=== PATIENT | female | born 1940 | race Caucasian/White ===

== ENCOUNTER 2017-10-19 06:31 | Inpatient (IN) | payer MEDICARE, OTHER ==
[~2017-10-19] VITALS: Ht 170.2 cm; Wt 75.0 kg
[2017-10-19] MEDS ORDERED: normal saline 1000ML IV soln IVB ONE (06:45)
[2017-10-19 07:12] LABS: BASOPHILS # (AUTO) 0.1 X10'3 (0-0.2); BASOPHILS % (AUTO) 0.4 % (0-1); EOSINOPHILS # (AUTO) 0.2 X10'3 (0-0.9); EOSINOPHILS % (AUTO) 1.6 % (0-6); HEMATOCRIT 28.9 % (35.0-45.0); HEMOGLOBIN 9.8 g/dl (12.0-16.0); LYMPHOCYTES # (AUTO) 1.5 X10'3 (1.1-4.8); LYMPHOCYTES % (AUTO) 9.8 % (21-51); MEAN CORPUSCULAR HEMOGLOBIN 29.9 PG (27.0-31.0); MEAN PLATELET VOLUME 8.9 FL (7.4-10.4); MONOCYTES # (AUTO) 0.2 X10'3 (0-0.9); MONOCYTES % (AUTO) 1.6 % (2-12); NEUTROPHILS # (AUTO) 13.5 X10'3 (1.8-7.7); NEUTROPHILS % (AUTO) 86.6 % (42-75); PLATELET COUNT 328 X10'3 (140-440); RED BLOOD COUNT 3.29 X10'6 (4.20-5.60); RED CELL DISTRIBUTION WIDTH 13.3 % (11.5-14.5); WHITE BLOOD COUNT 15.6 X10'3 (4.5-11.0)
[2017-10-19 07:37] LABS: ALANINE AMINOTRANSFERASE 23 U/L (12-78); ALBUMIN 3.3 G/DL (3.4-5.0); ALKALINE PHOSPHATASE 43 IU/L (46-116); ANION GAP 11 (8-16); ASPARTATE AMINO TRANSFERASE 13 U/L (10-37); BILIRUBIN,TOTAL 0.3 MG/DL (0.1-1.0); BLOOD UREA NITROGEN 46 MG/DL (7-18); BUN/CREATININE RATIO 79.3 (6.6-38.0); CHLORIDE 106 MMOL/L (99-107); CREATININE 0.58 MG/DL (0.40-0.90); GLUCOSE 107 MG/DL (70-104); MAGNESIUM 1.8 MG/DL (1.5-2.4); POTASSIUM 4.1 MMOL/L (3.5-5.1); SODIUM 143 MMOL/L (135-145); TOTAL PROTEIN 6.6 G/DL (6.4-8.2); eGFR > 90 ML/MIN
[2017-10-19] MEDS ORDERED: mag hydrox/Alum hydrox/simeth 30ml oral suspension PO PRN (08:40)
[2017-10-19] MEDS ORDERED: acetaminophen 325mg tablet PO PRN ×2 (08:40)
[2017-10-19] MEDS ORDERED: HYDROcodone/acetaminophen 5mg/325mg tablet PO PRN (08:40)
[2017-10-19] MEDS ORDERED: magnesium hydroxide 30ml (MOM) UD suspension PO PRN (08:40)
[2017-10-19] MEDS ORDERED: ondansetron/PF 4mg/2ml inj IV PRN (08:40)
[2017-10-19] MEDS ORDERED: PSEU30TA PO (09:28)
[2017-10-19] MEDS ORDERED: OSC500T PO (09:28)
[2017-10-19] MEDS ORDERED: BACL10TA PO (09:28)
[2017-10-19] MEDS ORDERED: OM-31CAP2 PO (09:28)
[2017-10-19] MEDS ORDERED: TRAM50TA2 PO (09:28)
[2017-10-19] MEDS ORDERED: FIBER PO (09:28)
[2017-10-19] MEDS ORDERED: VITA-268 PO (09:28)
[2017-10-19] MEDS ORDERED: MULT-933 PO (09:28)
[2017-10-19] MEDS ORDERED: MECL12.584 PO (09:28)
[2017-10-19] MEDS ORDERED: [UNRECOGNIZED DRUG - REMARK] (09:28)
[2017-10-19] MEDS ORDERED: ESTR-4 PO (09:28)
[2017-10-19] MEDS ORDERED: TRIA1TAB5 PO (09:28)
[2017-10-19] MEDS ORDERED: LANS30CA56 PO (09:28)
[2017-10-19] MEDS ORDERED: CELE-193 PO (09:28)
[2017-10-19] MEDS ORDERED: HYDR-565 PO (09:28)
[2017-10-19] MEDS ORDERED: SIMV80TA2 PO (09:28)
[2017-10-19] MEDS ORDERED: ASPI-130 PO (09:28)
[2017-10-19] MEDS ORDERED: LOSA50TA3 PO (09:28)
[2017-10-19] MEDS: normal saline 1000ml 1,000 ML IV SCH ×2 (09:30→22:42)
[2017-10-19 10:33] LABS: CLARITY,URINE CLEAR (Clear); COLOR,URINE YELLOW (Yellow); GLUCOSE, URINE NEGATIVE (Neg); KETONES,URINE 15 mg/dl (Neg); LEUKOCYTE ESTERASE ,URINE NEGATIVE (Neg); NITRITES, URINE NEGATIVE (Neg); OCCULT BLOOD,URINE NEGATIVE (Neg); PH,URINE 5.5 (4.8-8.0); PROTEIN,URINE NEGATIVE (Neg); UROBILINOGEN,URINE 0.2 E.U/dL (0.2-1.0)
[2017-10-19 10:38] LABS: UA COLLECTION TYPE CLN CATCH MIDSTREAM
[2017-10-19] MEDS: HYDROcodone/acetaminophen 10/325mg tab PO PRN ×2 (11:07→22:41)
[2017-10-19 19:10] VITALS: BP 129/59
[2017-10-19] MEDS ORDERED: temazepam 15mg capsule PO PRN (21:00)
[2017-10-19 22:00] VITALS: BP 149/41
[2017-10-19 22:46] LABS: HEMOGLOBIN 7.4 g/dl (12.0-16.0); MEAN CORPUSCULAR HGB CONC 34.3 % (33.0-36.5); MEAN CORPUSCULAR VOLUME 87.4 FL (78-98); MEAN PLATELET VOLUME 9.1 FL (7.4-10.4); PLATELET COUNT 272 X10'3 (140-440); RED BLOOD COUNT 2.45 X10'6 (4.20-5.60); RED CELL DISTRIBUTION WIDTH 13.7 % (11.5-14.5); WHITE BLOOD COUNT 9.7 X10'3 (4.5-11.0)
[2017-10-19 22:52] LABS: HEMATOCRIT 21.5 % (35.0-45.0)
[2017-10-19 23:24] LABS: OCCULT BLOOD STOOL POSITIVE (Neg)
[2017-10-20] VITALS (26 sets, daily range): BP systolic 124–159; BP diastolic 44–87
[2017-10-20] MEDS: HYDROcodone/acetaminophen 10/325mg tab PO PRN ×5 (03:04→23:27)
[2017-10-20] MEDS: normal saline 1000ml 1,000 ML IV SCH ×2 (06:00→14:52)
[2017-10-20 08:59] LABS: BASOPHILS % (AUTO) 0.2 % (0-1); EOSINOPHILS # (AUTO) 0.2 X10'3 (0-0.9); EOSINOPHILS % (AUTO) 1.7 % (0-6); HEMATOCRIT 28.2 % (35.0-45.0); HEMOGLOBIN 9.6 g/dl (12.0-16.0); LYMPHOCYTES # (AUTO) 2.4 X10'3 (1.1-4.8); LYMPHOCYTES % (AUTO) 24.5 % (21-51); MEAN CORPUSCULAR HEMOGLOBIN 30.9 PG (27.0-31.0); MEAN CORPUSCULAR VOLUME 90.9 FL (78-98); MEAN PLATELET VOLUME 9.2 FL (7.4-10.4); MONOCYTES # (AUTO) 0.4 X10'3 (0-0.9); MONOCYTES % (AUTO) 4.3 % (2-12); NEUTROPHILS # (AUTO) 6.9 X10'3 (1.8-7.7); NEUTROPHILS % (AUTO) 69.3 % (42-75); PLATELET COUNT 208 X10'3 (140-440); RED CELL DISTRIBUTION WIDTH 13.3 % (11.5-14.5); WHITE BLOOD COUNT 9.9 X10'3 (4.5-11.0)
[2017-10-20 09:21] LABS: ANION GAP 10 (8-16); BLOOD UREA NITROGEN 28 MG/DL (7-18); BUN/CREATININE RATIO 63.6 (6.6-38.0); CALCIUM 8.3 MG/DL (8.5-10.1); CHLORIDE 113 MMOL/L (99-107); CHOL/HDL RATIO 2.6 (0.00-4.99); CHOLESTEROL 133 MG/DL (0-200); CREATININE 0.44 MG/DL (0.40-0.90); GLUCOSE 104 MG/DL (70-104); HDL CHOLESTEROL 51 MG/DL (35-60); LDL CHOLESTEROL 44 MG/DL (50-100); POTASSIUM 3.4 MMOL/L (3.5-5.1); SODIUM 146 MMOL/L (135-145); TOTAL CARBON DIOXIDE 23.3 MMOL/L (24-32); TRIGLYCERIDES 248 MG/DL (20-135); eGFR > 90 ML/MIN
[2017-10-20] MEDS: pantoprazole 40MG/NS 100ML BAG 100 ML IV SCH ×4 (10:53→19:32)
[2017-10-20] MEDS ORDERED: MIDAZolam 5mg/ml 2ml vial ONE (12:18)
[2017-10-20] MEDS ORDERED: fentaNYL/PF 50MCG/1 ML 2ML syringe ONE (12:18)
[2017-10-20] MEDS ORDERED: LIDOcaine Viscous 15ml cup ONE (12:18)
[2017-10-20] MEDS ORDERED: normal saline 1000ml 1,000 ML IV SCH (13:26)
[2017-10-20] MEDS ORDERED: MIDAZolam 5mg/ml 2ml vial IV PRN (13:30)
[2017-10-20] MEDS ORDERED: LIDOcaine Viscous 15ml cup PO ONE (13:30)
[2017-10-20] MEDS ORDERED: fentaNYL/PF 50MCG/1 ML 2ML syringe IV PRN (13:30)
[2017-10-20] MEDS ORDERED: simethicone 40mg/0.6ml oral drops 30ml MC ONE (13:30)
[2017-10-20] MEDS ORDERED: potassium Cl 40MEQ/NS 500ml 500 ML IV PRN ×2 (15:10)
[2017-10-20] MEDS ORDERED: potassium Cl 20 mEq SR tablet PO PRN (15:10)
[2017-10-20] MEDS ORDERED: magnesium 2GM in 50ml NS 50 ML IV PRN (15:10)
[2017-10-20] MEDS ORDERED: magnesium Cl slow-release 64mg tablet PO PRN (15:10)
[2017-10-20] MEDS ORDERED: magnesium 4gm in 100ml NS 100 ML IV PRN (15:10)
[2017-10-21] MEDS: pantoprazole 40MG/NS 100ML BAG 100 ML IV SCH ×5 (01:01→19:58)
[2017-10-21] MEDS: normal saline 1000ml 1,000 ML IV SCH ×3 (01:02→19:58)
[2017-10-21 02:00] VITALS: BP 142/55
[2017-10-21 04:26] LABS: BASOPHILS % (AUTO) 0.1 % (0-1); EOSINOPHILS # (AUTO) 0.3 X10'3 (0-0.9); EOSINOPHILS % (AUTO) 3.3 % (0-6); HEMATOCRIT 24.6 % (35.0-45.0); HEMOGLOBIN 8.5 g/dl (12.0-16.0); LYMPHOCYTES # (AUTO) 4.6 X10'3 (1.1-4.8); LYMPHOCYTES % (AUTO) 43.7 % (21-51); MEAN CORPUSCULAR HGB CONC 34.5 % (33.0-36.5); MEAN CORPUSCULAR VOLUME 89.8 FL (78-98); MEAN PLATELET VOLUME 8.6 FL (7.4-10.4); MONOCYTES # (AUTO) 0.6 X10'3 (0-0.9); MONOCYTES % (AUTO) 5.4 % (2-12); NEUTROPHILS % (AUTO) 47.5 % (42-75); PLATELET COUNT 221 X10'3 (140-440); RED BLOOD COUNT 2.74 X10'6 (4.20-5.60); RED CELL DISTRIBUTION WIDTH 13.8 % (11.5-14.5); WHITE BLOOD COUNT 10.5 X10'3 (4.5-11.0)
[2017-10-21 04:27] LABS: ALBUMIN 2.8 G/DL (3.4-5.0); ANION GAP 8 (8-16); BLOOD UREA NITROGEN 12 MG/DL (7-18); CHLORIDE 111 MMOL/L (99-107); CREATININE 0.48 MG/DL (0.40-0.90); GLUCOSE 90 MG/DL (70-104); MAGNESIUM 1.9 MG/DL (1.5-2.4); POTASSIUM 3.4 MMOL/L (3.5-5.1); SODIUM 145 MMOL/L (135-145); TOTAL CARBON DIOXIDE 26.5 MMOL/L (24-32); eGFR > 90 ML/MIN
[2017-10-21] MEDS: potassium Cl 20 mEq SR tablet PO PRN ×3 (04:39→13:05)
[2017-10-21] MEDS: HYDROcodone/acetaminophen 10/325mg tab PO PRN ×3 (04:41→15:34)
[2017-10-21 06:00] VITALS: BP 145/45
[2017-10-21 11:00] VITALS: BP 145/58
[2017-10-21] MEDS ORDERED: pseudoephedrine 30mg tablet PO PRN (11:15)
[2017-10-21] MEDS ORDERED: meclizine 12.5mg tablet PO PRN (11:15)
[2017-10-21] MEDS: losartan 50mg tablet PO SCH (12:56)
[2017-10-21] MEDS: baclofen 10mg tablet PO SCH ×2 (12:57→19:58)
[2017-10-21] MEDS: calcium carbonate 500mg tablet PO SCH (12:57)
[2017-10-21] MEDS ORDERED: HYDROcodone/acetaminophen 10/325mg tab PO SCH (13:00)
[2017-10-21 15:00] VITALS: BP 149/33
[2017-10-21 18:00] VITALS: BP 149/50
[2017-10-21] MEDS ORDERED: FLAX PO SCH (20:00)
[2017-10-21] MEDS ORDERED: FISH OIL PO SCH (20:00)
[2017-10-21] MEDS ORDERED: DHA PO SCH (20:00)
[2017-10-21] MEDS ORDERED: pantoprazole 40mg Tablet.DR PO SCH (20:00)
[2017-10-21] MEDS: atorvastatin 20mg tablet PO SCH (20:00)
[2017-10-21] MEDS ORDERED: EPA PO SCH (20:00)
[2017-10-21] MEDS ORDERED: [UNRECOGNIZED DRUG - OTHER] PO SCH (20:00)
[2017-10-21 22:00] VITALS: BP 138/80
[2017-10-22] VITALS (7 sets, daily range): BP systolic 108–162; BP diastolic 43–58
[2017-10-22] MEDS: HYDROcodone/acetaminophen 10/325mg tab PO PRN ×4 (00:21→14:26)
[2017-10-22] MEDS: pantoprazole 40MG/NS 100ML BAG 100 ML IV SCH (01:00)
[2017-10-22 05:41] LABS: BASOPHILS % (AUTO) 0.5 % (0-1); EOSINOPHILS # (AUTO) 0.3 X10'3 (0-0.9); EOSINOPHILS % (AUTO) 4.2 % (0-6); HEMOGLOBIN 7.3 g/dl (12.0-16.0); LYMPHOCYTES # (AUTO) 2.2 X10'3 (1.1-4.8); LYMPHOCYTES % (AUTO) 36.7 % (21-51); MEAN CORPUSCULAR HEMOGLOBIN 30.8 PG (27.0-31.0); MEAN CORPUSCULAR HGB CONC 34.3 % (33.0-36.5); MEAN CORPUSCULAR VOLUME 89.8 FL (78-98); MEAN PLATELET VOLUME 8.7 FL (7.4-10.4); MONOCYTES # (AUTO) 0.4 X10'3 (0-0.9); MONOCYTES % (AUTO) 6.2 % (2-12); NEUTROPHILS # (AUTO) 3.1 X10'3 (1.8-7.7); NEUTROPHILS % (AUTO) 52.4 % (42-75); PLATELET COUNT 210 X10'3 (140-440); RED BLOOD COUNT 2.39 X10'6 (4.20-5.60); RED CELL DISTRIBUTION WIDTH 14.3 % (11.5-14.5); WHITE BLOOD COUNT 5.9 X10'3 (4.5-11.0)
[2017-10-22 05:58] LABS: ALBUMIN 2.6 G/DL (3.4-5.0); ANION GAP 9 (8-16); BLOOD UREA NITROGEN 11 MG/DL (7-18); CALCIUM 8.4 MG/DL (8.5-10.1); CHLORIDE 113 MMOL/L (99-107); GLUCOSE 105 MG/DL (70-104); MAGNESIUM 1.8 MG/DL (1.5-2.4); POTASSIUM 3.5 MMOL/L (3.5-5.1); SODIUM 147 MMOL/L (135-145); TOTAL CARBON DIOXIDE 25.2 MMOL/L (24-32); eGFR > 90 ML/MIN
[2017-10-22 06:22] LABS: HEMATOCRIT 21.4 % (35.0-45.0)
[2017-10-22] MEDS ORDERED: triamterene/HCTZ 37.5/25mg tablet PO SCH (08:00)
[2017-10-22 08:20] LABS: ALANINE AMINOTRANSFERASE 32 U/L (12-78); ALKALINE PHOSPHATASE 35 IU/L (46-116); ASPARTATE AMINO TRANSFERASE 26 U/L (10-37); BILIRUBIN,DIRECT 0.1 MG/DL (0-0.3); BILIRUBIN,TOTAL 0.3 MG/DL (0.1-1.0); TOTAL PROTEIN 5.3 G/DL (6.4-8.2)
[2017-10-22] MEDS: pantoprazole 40 MG vial IV SCH (08:35)
[2017-10-22] MEDS: vitamin B comp w/Vit. C tab 1 TAB TABLET PO SCH (08:35)
[2017-10-22] MEDS: multivitamins, therapeutics tablet PO SCH (08:35)
[2017-10-22] MEDS: losartan 50mg tablet PO SCH (08:35)
[2017-10-22] MEDS: calcium carbonate 500mg tablet PO SCH (08:36)
[2017-10-22 09:25] LABS: BASOPHILS % (AUTO) 0.4 % (0-1); EOSINOPHILS # (AUTO) 0.2 X10'3 (0-0.9); EOSINOPHILS % (AUTO) 3.2 % (0-6); HEMATOCRIT 24.4 % (35.0-45.0); HEMOGLOBIN 8.3 g/dl (12.0-16.0); LYMPHOCYTES # (AUTO) 2.4 X10'3 (1.1-4.8); LYMPHOCYTES % (AUTO) 36.9 % (21-51); MEAN CORPUSCULAR HEMOGLOBIN 31.1 PG (27.0-31.0); MEAN CORPUSCULAR HGB CONC 34.1 % (33.0-36.5); MEAN PLATELET VOLUME 9.5 FL (7.4-10.4); MONOCYTES # (AUTO) 0.4 X10'3 (0-0.9); MONOCYTES % (AUTO) 6.6 % (2-12); NEUTROPHILS # (AUTO) 3.5 X10'3 (1.8-7.7); NEUTROPHILS % (AUTO) 52.9 % (42-75); PLATELET COUNT 233 X10'3 (140-440); RED BLOOD COUNT 2.69 X10'6 (4.20-5.60); RED CELL DISTRIBUTION WIDTH 13.9 % (11.5-14.5); WHITE BLOOD COUNT 6.6 X10'3 (4.5-11.0)
[2017-10-22] MEDS: atorvastatin 20mg tablet PO SCH (20:30)
[2017-10-23] MEDS: HYDROcodone/acetaminophen 10/325mg tab PO PRN ×5 (00:07→19:09)
[2017-10-23 03:00] VITALS: BP 128/55
[2017-10-23 05:22] LABS: BASOPHILS # (AUTO) 0.1 X10'3 (0-0.2); BASOPHILS % (AUTO) 0.7 % (0-1); EOSINOPHILS # (AUTO) 0.3 X10'3 (0-0.9); EOSINOPHILS % (AUTO) 2.4 % (0-6); HEMATOCRIT 26.1 % (35.0-45.0); HEMOGLOBIN 8.8 g/dl (12.0-16.0); LYMPHOCYTES # (AUTO) 4.1 X10'3 (1.1-4.8); LYMPHOCYTES % (AUTO) 38.6 % (21-51); MEAN CORPUSCULAR HEMOGLOBIN 30.6 PG (27.0-31.0); MEAN CORPUSCULAR HGB CONC 33.8 % (33.0-36.5); MEAN CORPUSCULAR VOLUME 90.6 FL (78-98); MEAN PLATELET VOLUME 9.7 FL (7.4-10.4); MONOCYTES # (AUTO) 0.6 X10'3 (0-0.9); MONOCYTES % (AUTO) 5.4 % (2-12); NEUTROPHILS # (AUTO) 5.7 X10'3 (1.8-7.7); NEUTROPHILS % (AUTO) 52.9 % (42-75); PLATELET COUNT 283 X10'3 (140-440); RED BLOOD COUNT 2.88 X10'6 (4.20-5.60); RED CELL DISTRIBUTION WIDTH 13.9 % (11.5-14.5); WHITE BLOOD COUNT 10.7 X10'3 (4.5-11.0)
[2017-10-23 05:55] LABS: ALBUMIN 3.1 G/DL (3.4-5.0); ANION GAP 11 (8-16); BLOOD UREA NITROGEN 16 MG/DL (7-18); BUN/CREATININE RATIO 29.6 (6.6-38.0); CALCIUM 9.1 MG/DL (8.5-10.1); CHLORIDE 109 MMOL/L (99-107); CREATININE 0.54 MG/DL (0.40-0.90); GLUCOSE 94 MG/DL (70-104); MAGNESIUM 1.9 MG/DL (1.5-2.4); POTASSIUM 3.4 MMOL/L (3.5-5.1); SODIUM 147 MMOL/L (135-145); TOTAL CARBON DIOXIDE 27.4 MMOL/L (24-32); eGFR > 90 ML/MIN
[2017-10-23 06:00] VITALS: BP 146/39
[2017-10-23] MEDS: pantoprazole 40 MG vial IV SCH (07:49)
[2017-10-23] MEDS: vitamin B comp w/Vit. C tab 1 TAB TABLET PO SCH (07:50)
[2017-10-23] MEDS: calcium carbonate 500mg tablet PO SCH (07:50)
[2017-10-23] MEDS: multivitamins, therapeutics tablet PO SCH (07:50)
[2017-10-23] MEDS: losartan 50mg tablet PO SCH (07:50)
[2017-10-23 08:00] VITALS: BP_SYST 114; BP_SYST 121; BP_SYST 133; BP_DIAS 42; BP_DIAS 43
[2017-10-23] MEDS: potassium Cl 20 mEq SR tablet PO PRN ×2 (08:13→12:36)
[2017-10-23] MEDS ORDERED: iohexol 350MG/ML 100ml bottle IV ONE ×2 (09:31→14:37)
[2017-10-23 11:00] VITALS: BP 110/45
[2017-10-23] MEDS ORDERED: magnesium 4gm in 100ml NS 100 ML IV PRN (18:10)
[2017-10-23] MEDS ORDERED: magnesium 2GM in 50ml NS 50 ML IV PRN (18:10)
[2017-10-23] MEDS ORDERED: potassium Cl 20 mEq SR tablet PO PRN ×2 (18:10)
[2017-10-23] MEDS ORDERED: magnesium Cl slow-release 64mg tablet PO PRN (18:10)
[2017-10-23] MEDS ORDERED: potassium Cl 40MEQ/NS 500ml 500 ML IV PRN ×2 (18:10)
[2017-10-23 19:00] VITALS: BP 133/48
[2017-10-23] MEDS: atorvastatin 20mg tablet PO SCH (20:10)
[2017-10-23 23:00] VITALS: BP 126/47
[2017-10-24] VITALS: BP 121/48
[2017-10-24] MEDS: HYDROcodone/acetaminophen 10/325mg tab PO PRN ×3 (02:00→11:37)
[2017-10-24 05:37] LABS: BASOPHILS % (AUTO) 0.3 % (0-1); EOSINOPHILS # (AUTO) 0.4 X10'3 (0-0.9); EOSINOPHILS % (AUTO) 4.4 % (0-6); HEMATOCRIT 23.1 % (35.0-45.0); HEMOGLOBIN 7.9 g/dl (12.0-16.0); LYMPHOCYTES % (AUTO) 34.1 % (21-51); MEAN CORPUSCULAR HEMOGLOBIN 31.2 PG (27.0-31.0); MEAN CORPUSCULAR HGB CONC 34.3 % (33.0-36.5); MEAN CORPUSCULAR VOLUME 90.9 FL (78-98); MEAN PLATELET VOLUME 8.4 FL (7.4-10.4); MONOCYTES # (AUTO) 0.6 X10'3 (0-0.9); MONOCYTES % (AUTO) 7.3 % (2-12); NEUTROPHILS # (AUTO) 4.8 X10'3 (1.8-7.7); NEUTROPHILS % (AUTO) 53.9 % (42-75); PLATELET COUNT 280 X10'3 (140-440); RED BLOOD COUNT 2.54 X10'6 (4.20-5.60); RED CELL DISTRIBUTION WIDTH 14.2 % (11.5-14.5); WHITE BLOOD COUNT 8.9 X10'3 (4.5-11.0)
[2017-10-24 05:42] LABS: ALBUMIN 2.7 G/DL (3.4-5.0); ANION GAP 7 (8-16); BLOOD UREA NITROGEN 14 MG/DL (7-18); BUN/CREATININE RATIO 27.5 (6.6-38.0); CALCIUM 8.9 MG/DL (8.5-10.1); CHLORIDE 108 MMOL/L (99-107); CREATININE 0.51 MG/DL (0.40-0.90); GLUCOSE 108 MG/DL (70-104); MAGNESIUM 1.6 MG/DL (1.5-2.4); POTASSIUM 3.8 MMOL/L (3.5-5.1); SODIUM 143 MMOL/L (135-145); TOTAL CARBON DIOXIDE 27.6 MMOL/L (24-32); eGFR > 90 ML/MIN
[2017-10-24 07:00] VITALS: BP_SYST 105; BP_SYST 128; BP_SYST 133; BP_DIAS 49; BP_DIAS 55; BP_DIAS 62
[2017-10-24 07:08] VITALS: BP 133/49
[2017-10-24] MEDS: losartan 50mg tablet PO SCH (08:44)
[2017-10-24] MEDS: multivitamins, therapeutics tablet PO SCH (08:44)
[2017-10-24] MEDS: pantoprazole 40 MG vial IV SCH (08:44)
[2017-10-24] MEDS: calcium carbonate 500mg tablet PO SCH (08:45)
[2017-10-24] MEDS: vitamin B comp w/Vit. C tab 1 TAB TABLET PO SCH (08:45)
[2017-10-24 12:00] VITALS: BP 115/92
[2017-10-24 12:58] LABS: BASOPHILS % (AUTO) 0.3 % (0-1); EOSINOPHILS # (AUTO) 0.2 X10'3 (0-0.9); EOSINOPHILS % (AUTO) 2.7 % (0-6); HEMATOCRIT 25.8 % (35.0-45.0); HEMOGLOBIN 8.8 g/dl (12.0-16.0); LYMPHOCYTES # (AUTO) 2.5 X10'3 (1.1-4.8); LYMPHOCYTES % (AUTO) 29.8 % (21-51); MEAN CORPUSCULAR HEMOGLOBIN 30.8 PG (27.0-31.0); MEAN CORPUSCULAR VOLUME 90.6 FL (78-98); MEAN PLATELET VOLUME 8.6 FL (7.4-10.4); MONOCYTES # (AUTO) 0.6 X10'3 (0-0.9); MONOCYTES % (AUTO) 6.8 % (2-12); NEUTROPHILS # (AUTO) 5.1 X10'3 (1.8-7.7); NEUTROPHILS % (AUTO) 60.4 % (42-75); PLATELET COUNT 324 X10'3 (140-440); RED BLOOD COUNT 2.85 X10'6 (4.20-5.60); RED CELL DISTRIBUTION WIDTH 14.3 % (11.5-14.5); WHITE BLOOD COUNT 8.5 X10'3 (4.5-11.0)
[2017-10-25] MEDS ORDERED: pantoprazole 40mg Tablet.DR PO SCH (07:30)
== END 2017-10-24 16:39 | disposition home or self-care (01) | DRG 378 ==
LOC: ER 06:32 → OBSVTOIN 08:38 → ED HOLD 08:38 → EDBEDREQ 18:32 → PCU 3S 19:10 → SUR 3N 10-23 23:35
PROVIDERS: ADMIT Hospitalist; ATTEND Internal Medicine
PROC: 0DB68ZX Excision of Stomach, Via Natural or Artificial Opening Endoscopic, Diagnostic (ICD-10-PCS; principal; 2017-10-20)
PROC: 30233N1 Transfusion of Nonautologous Red Blood Cells into Peripheral Vein, Percutaneous Approach (ICD-10-PCS; 2017-10-20)
PROC: B0201ZZ Computerized Tomography (CT Scan) of Brain using Low Osmolar Contrast (ICD-10-PCS; 2017-10-23)
PROC: B02 Imaging, Central Nervous System, Computerized Tomography (CT Scan) (ICD-10-PCS; 2017-10-23)
PROC: B0281ZZ Computerized Tomography (CT Scan) of Cerebral Ventricle(s) using Low Osmolar Contrast (ICD-10-PCS; 2017-10-23)
DX: K25.4 Chronic or unspecified gastric ulcer with hemorrhage (principal); D62 Acute posthemorrhagic anemia; E86.0 Dehydration; M06.9 Rheumatoid arthritis, unspecified; I65.21 Occlusion and stenosis of right carotid artery; W18.11XA Fall from or off toilet without subsequent striking against object, initial encounter; E78.5 Hyperlipidemia, unspecified; K31.7 Polyp of stomach and duodenum; H91.90 Unspecified hearing loss, unspecified ear; E87.6 Hypokalemia; I10 Essential (primary) hypertension; K57.90 Diverticulosis of intestine, part unspecified, without perforation or abscess without bleeding; M19.90 Unspecified osteoarthritis, unspecified site; S00.93XA Contusion of unspecified part of head, initial encounter; R74.8 Abnormal levels of other serum enzymes; R94.31 Abnormal electrocardiogram [ECG] [EKG]; Z96.651 Presence of right artificial knee joint; Z79.899 Other long term (current) drug therapy; Z87.11 Personal history of peptic ulcer disease; Z82.49 Family history of ischemic heart disease and other diseases of the circulatory system; Y93.89 Activity, other specified; Y92.89 Other specified places as the place of occurrence of the external cause; Y99.8 Other external cause status
CPT/HCPCS: 36415; 43239; 70450; 70496; 70551; 71045; 80048; 80053; 80061; 80076; 81003; 82272; 83735; 83880; 84484; 85025; 85027; 86885; 86900; 86901; 86920; 87070; 88305; 88342; 93005; 93306; 93880; 96360; 97116; 97162; 97530; 99285; A4620; C9113; G0500; J2250; J3010; J3480; J7030; P9016; Q9967

== ENCOUNTER 2025-05-24 14:39 | Outpatient (CLI) | payer MEDICARE, OTHER ==
[~2025-05-24 14:39] MED LIST: FIBER PO; LANS30CA56 PO; MECL-231 PO; MULT-933 PO; OM-31CAP2 PO; OSC500T PO; TRIA1TAB5 PO; VITA-268 PO
--- NOTE | 2025-05-26 18:53 | CARDIOLOGY REPORT ---
APPROVED REPORT EXAM: Comprehensive 2D, Doppler, and color-flow Echocardiogram. Patient Location: OUT-PATIENT Blood Pressure: 172 / 53 mmHg Heart Rate: 87 bpm Rhythm: MOSTLY SINUS, INTERMITTENT ATRIAL FIBRILLATION Indications MURMUR Instructional Support Assistant: ? MD Tabatha (NOT SEEN IN >3 YRS) Previous echo: 10/19/2017 [facility] EF: 60%; nlLV; nlRV: nlLA/RA; nlAV-Cece; nlMV- trivMR; mTR; RVSP 46 2D Dimensions LVOT Diameter 1.98 (1.8-2.4cm) M-Mode Dimensions Left Atrium(MM) 4.08 (2.5-4.0cm) IVSd 1.14 (0.7-1.1cm) LVDd 5.41 (4.0-5.6cm) Aortic Root 3.08 (2.2-3.7cm) PWd 1.14 (0.7-1.1cm) Aortic Cusp Exc 0.90 (1.5-2.0cm) IVSs 1.62 cm MV EPSS 0.2 (<0.5cm) LVDs 3.46 (2.0-3.8cm) FS (%) 36 % PWs 1.43 cm ESV(Teich) 49.5 ml LVEF(%) 65 (>50%) Aortic Valve AoV Peak Allan. 270.4 cm/s AoV VTI 54.4 cm AO Peak GR. 31.0 mmHg AO Mean GR. 20 mmHg LVOT VTI 32.06 cm LVOT Peak Allan. 133.2 cm/s MIRIAN (VMAX) 1.51 cm2 MIRIAN (VTI) 1.58 cm2 AI P 1/2 Time 240 ms AV DI 0.65 % Mitral Valve MV E Velocity 102.8 cm/s MV DECEL TIME 141 ms MV A Velocity 103.3 cm/s MV PHT 51 ms E/A Ratio 1.0 MVA (PHT) 4.32 cm2 Tricuspid Valve TR P. Velocity 356 cm/s RAP ESTIMATE 10 mmHg TR Peak Gr. 51 mmHg RVSP 61 mmHg LEFT VENTRICLE Normal LV size with mild concentric hypertrophy. (slightly prominent septal knuckle) Overall systolic function is normal. LVEF is 65-70%. GLS - 17 %. RIGHT VENTRICLE RV is normal size and function. Elevated right heart pressures with an RVSP of 61 mmHg. ATRIA Left atrium is mildly dilated. Mobile interatrial septum - no flow detected. 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 MIRIAN: 1.55 cmsq; Pkv: 2.70 m/sec; Gradients: 31 / 20 mmHG. Mild insufficiency. MITRAL VALVE Mild MV annular calcification without stenosis. Moderate, multijet, eccentric regurgitation. TRICUSPID VALVE TV appears structurally normal with moderate regurgitation. PULMONIC VALVE Normal PV without stenosis, mild insufficiency. GREAT VESSELS Aortic root is normal in size. Ascending aorta is normal in size. PERICARDIUM Normal pericardium. No effusion. Conclusion Normal LV size with mild concentric hypertrophy. (slightly prominent septal knuckle) Overall systolic function is normal. LVEF is 65-70%. GLS - 17 %. RV is normal size and function. Elevated right heart pressures with an RVSP of 61 mmHg. Left atrium is mildly dilated. Mobile interatrial septum - no flow detected. 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 MIRIAN: 1.55 cmsq; Pkv: 2.70 m/sec; Gradients: 31 / 20 mmHG. Mild insufficiency. Mild MV annular calcification without stenosis. Moderate, multijet, eccentric regurgitation. TV appears structurally normal with moderate regurgitation. Normal PV without stenosis, mild insufficiency. Normal pericardium. No effusion.
== END 2025-05-24 23:59 | disposition home or self-care (01) ==
LOC: CARD DIAG 14:39
PROVIDERS: ATTEND Internal Medicine
DX: I08.8 Other rheumatic multiple valve diseases (principal); R01.1 Cardiac murmur, unspecified
CPT/HCPCS: 93306